=== PATIENT | male | born 1995 | race Caucasian/White ===

== ENCOUNTER 2023-07-16 23:21 | Emergency (ER) | payer SELFPAY ==
[~2023-07-16] VITALS: Ht 167.6 cm; Wt 68.0 kg
[2023-07-16 23:30] VITALS: BP 129/76; RESP 20; TEMP 98.2; O2SAT 97
[2023-07-16 23:32] VITALS: PULSE 78
[2023-07-17 00:08] LABS: HEMATOCRIT. 52.6 % (42.0-52.0); HEMOGLOBIN. 18.2 g/dL (14.0-18.0); MEAN CORPUSCULAR HEMOGLOBIN 33.8 pg (28.0-32.0); MEAN CORPUSCULAR HGB CONC 34.6 g/dL (31.0-37.0); MEAN CORPUSCULAR VOLUME 97.8 fL (80.0-94.0); MEAN PLATELET VOLUME 8.4 fl (7.4-10.4); PLATELET 353 x1000/uL (130-400); RED BLOOD CELL COUNT 5.38 mill/uL (4.7-6.1); RED CELL DISTRIBUTION WIDTH 12.6 % (11.6-14.6); WHITE BLOOD COUNT 12.6 x1000/uL (4.5-11.0)
[2023-07-17 00:26] LABS: ALANINE AMINOTRANSFERASE 36 IU/L (10-49); ALBUMIN 5.3 g/dL (3.2-4.8); ASPARTATE AMINOTRANSFERASE 39 IU/L (<34); CALCIUM 10.4 mg/dL (8.7-10.4); CARBON DIOXIDE 26 mEq/L (21-32); CHLORIDE 102 mEq/L (98-107); CREATININE 1.5 mg/dL (0.6-1.3); GLUCOSE 163 mg/dL (70-105); POTASSIUM 3.9 mEq/L (3.5-5.1); PROTEIN TOTAL 8.2 g/dL (6.0-8.3); SODIUM 142 mEq/L (136-145); UREA NITROGEN BLOOD 19 mg/dL (9-23)
[2023-07-17 00:42] LABS: ETHANOL BLOOD < 10 mg/dL (<10)
[2023-07-17 00:46] LABS: CLARITY URINE TURBID (CLEAR); COLOR URINE ORANGE (YELLOW); GLUCOSE URINE NEGATIVE (NEGATIVE); KETONES URINE 1+ (NEGATIVE); LEUKOCYTE ESTERASE URINE TRACE (NEGATIVE); NITRITE URINE NEGATIVE (NEGATIVE); OCCULT BLOOD URINE NEGATIVE (NEGATIVE); PH URINE 5.5 (4.5-8.0); PROTEIN URINE 1+ (NEGATIVE); SPECIFIC GRAVITY URINE 1.032 (1.005-1.030); UROBILINOGEN URINE 0.2 E.U./dL (0.2-1.0)
[2023-07-17 00:49] LABS: RBC URINE NONE SEEN /hpf (0-2); SQUAMOUS EPITHELIAL CELL URINE 1+ /lpf (RARE/1+); YEAST URINE NONE SEEN
[2023-07-17 01:01] LABS: DIFFERENTIAL COMMENT 1
[2023-07-17 01:04] LABS: PLATELET ESTIMATE NORMAL
[2023-07-17 01:07] LABS: *AMPHETAMINES SCREEN URINE Neg (NEGATIVE); *BARBITURATES SCREEN URINE Neg (NEGATIVE); *BENZODIAZEPINES SCREEN URINE Neg (NEGATIVE); *COCAINE SCREEN URINE Neg (NEGATIVE); CANNABINOID URINE SCREEN Pos (NEGATIVE); ECSTASY MDMA SCREEN URINE Neg (NEGATIVE); METHADONE URINE SCREEN Neg (NEGATIVE); OPIATES URINE SCREEN Neg (NEGATIVE); PHENCYCLIDINE URINE SCREEN Neg (NEGATIVE)
[2023-07-17 01:23] LABS: BACTERIA URINE 1+
== END 2023-07-17 08:20 | disposition left against medical advice (07) ==
LOC: ER 23:21
DX: R11.2 Nausea with vomiting, unspecified (principal); R10.9 Unspecified abdominal pain; R07.89 Other chest pain; Z53.21 Procedure and treatment not carried out due to patient leaving prior to being seen by health care provider
CPT/HCPCS: 36415; 80053; 80305; 80320; 81003; 85025; 99281; G0480

== ENCOUNTER 2025-06-28 10:12 | Emergency (ER) | payer MEDICAID ==
[~2025-06-28] VITALS: Ht 185.4 cm; Wt 82.0 kg
[2025-06-28 10:14] VITALS: O2SAT 98
[2025-06-28 11:04] LABS: BASOPHILS % 0.8 % (0.0-2.0); EOSINOPHILS % 0.2 % (0.0-5.0); HEMATOCRIT. 44.4 % (42.0-52.0); HEMOGLOBIN. 15.4 g/dL (14.0-18.0); LYMPHOCYTES % 26.7 % (20.0-50.0); MEAN PLATELET VOLUME 7.9 fl (7.4-10.4); MONOCYTES % 7.0 % (2.0-8.0); NEUTROPHILS % 65.3 % (40.0-76.0); PLATELET 320 x1000/uL (130-400); RED BLOOD CELL COUNT 4.64 mill/uL (4.7-6.1); RED CELL DISTRIBUTION WIDTH 14.2 % (11.6-14.6)
[2025-06-28 11:14] LABS: INR 1.1
[2025-06-28 11:36] LABS: CREATININE 1.1 mg/dL (0.6-1.3)
[2025-06-28 11:37] LABS: UREA NITROGEN BLOOD 11 mg/dL (9-23)
[2025-06-28 11:38] LABS: ASPARTATE AMINOTRANSFERASE 27 IU/L (<34); BILIRUBIN DIRECT 1.1 mg/dL (<=3.0)
[2025-06-28 11:39] LABS: BILIRUBIN TOTAL 3.6 mg/dL (0.1-1.0); PROTEIN TOTAL 7.3 g/dL (6.0-8.3)
[2025-06-28] MEDS: DIPHENHYDRAMINE 50MG/ML VIAL IV ONE (12:05)
[2025-06-28] MEDS: METOCLOPRAMIDE HCL 10MG/2ML VIAL IV ONE (12:06)
[2025-06-28] MEDS: PANTOPRAZOLE SODIUM 40 MG/VIAL IV ONE (12:06)
[2025-06-28] MEDS: SODIUM CHLORIDE 0.9% 1,000 ML IV ONE (12:06)
[2025-06-28] MEDS: KCL 20MEQ/100ML PREMIX 100 ML IV SCH (13:30)
[2025-06-28] MEDS: POTASSIUM CHLORIDE 20MEQ TABLET SR PO NR (13:30)
[2025-06-28] MEDS: ONDANSETRON HCL 4MG/2ML INJ IV SCH (14:54)
[2025-06-28 16:00] VITALS: BP 122/80; PULSE 70; RESP 15; TEMP 36.8; O2SAT 99
[2025-06-28] MEDS ORDERED: DOCUSATE SODIUM 100MG CAPSULE PO PRN (17:00)
[2025-06-28] MEDS ORDERED: IPRATROPIUM/ALBUTEROL 0.5-3(2.5)MG/3ML NEB HHN PRN (17:00)
[2025-06-28] MEDS ORDERED: ACETAMINOPHEN 325MG TABLET PO PRN ×2 (17:00)
[2025-06-28] MEDS ORDERED: ONDANSETRON HCL 4MG/2ML INJ IV PRN (17:00)
[2025-06-28] MEDS ORDERED: CLONIDINE 0.1MG TABLET PO PRN (17:00)
[2025-06-28] MEDS ORDERED: PANTOPRAZOLE SODIUM 40 MG/VIAL IV SCH (17:00)
[2025-06-28] MEDS ORDERED: SODIUM CHLORIDE 0.9% 1,000 ML IV SCH (17:00)
== END 2025-06-28 17:00 | disposition left against medical advice (07) ==
LOC: ER 10:12 → CMPBEDREQ 06-29 07:22
DX: E87.6 Hypokalemia (principal); F41.9 Anxiety disorder, unspecified; Z90.49 Acquired absence of other specified parts of digestive tract
CPT/HCPCS: 80076; 80048; 80320; 83690; 83735; 85025; 85610; 36415; 74176; 76705; 96367; 96368; 96365; 96366; 96375; 99285; J1200; J2765; J2405; J2470; J3480; J7030; Z7610; G0480